=== PATIENT | female | born 1935 | race Caucasian/White ===

== ENCOUNTER 2017-03-08 09:38 | Inpatient (IN) | payer MEDICARE, OTHER ==
[2017-03-08] MEDS ORDERED: Sodium Chloride 0.9% 10 ML Syringe FLUSH PRN (14:11)
[2017-03-08] MEDS ORDERED: Ondansetron 4 MG Tab.DIS PO PRN ×2 (14:11→18:28)
[2017-03-08] MEDS: Sodium Chloride 0.9% 1,000 ML IV SCH ×2 (15:10→23:23)
[2017-03-08] MEDS: cefTRIAXone 1,000 MG in Sodium Chloride 0.9% 50 ML IV SCH (15:12)
[2017-03-08] MEDS: Enoxaparin 30 MG/0.3 ML Syringe SUBCUT SCH (16:53)
[2017-03-08] MEDS ORDERED: Albuterol 8 GM Inhaler INH PRN (18:28)
[2017-03-08] MEDS ORDERED: ALPRAZolam 0.5 MG Tab PO PRN (18:28)
[2017-03-08] MEDS ORDERED: Mometasone Furoate HFA 200 mcg/Puff 13 GM Inhaler INH SCH (21:00)
[2017-03-08] MEDS: ADVAIR INH SCH (21:21)
[2017-03-08] MEDS: Melatonin 3 MG Tab PO PRN (23:48)
[2017-03-09] MEDS: Sodium Chloride 0.9% 1,000 ML IV SCH ×3 (07:23→23:58)
[2017-03-09] MEDS ORDERED: ONDANSETRON 4MG TAB PO PRN ×2 (08:24→08:28)
[2017-03-09] MEDS: ADVAIR INH SCH ×2 (10:46→21:24)
[2017-03-09] MEDS: Escitalopram 20 MG Tab PO SCH (10:46)
[2017-03-09] MEDS: buPROPion 150 MG Tab.SR PO SCH (10:47)
[2017-03-09] MEDS: Tiotropium Inhaler 18 MCG Inhalation Powder Cap Kit of 5 INH SCH (10:47)
[2017-03-09] MEDS: Furosemide 20 MG Tab PO SCH (10:56)
--- NOTE | 2017-03-09 11:31 | PN ---
DATE SEEN: 03/09/2017 SUBJECTIVE: Deidra Macias is a 81-year-old female admitted with complicated urosepsis. Little better this morning. Little more confused by nursing observation. Otherwise, doing better. LABORATORY STUDIES: White count 14,800, repeat pending this morning. Sodium 133. Urine culture per [place] pending. OBJECTIVE: VITAL SIGNS: 37 degrees, 169/97, 134/84, 20, and 100%. NECK: Benign. Thyroid small. CHEST: Clear in all lung womack. HEART: Regular without ectopy. ABDOMEN: A bit distended. Good bowel sounds. Postvoid residual, 270. ASSESSMENT: 1. Urosepsis. 2. Vague abdominal pain. PLAN: Diagnostic ultrasound performed, we will follow up with laboratory studies, i.e. urine culture. The patient in agreement. Medications adjusted. /[id number] LIZ/SASKIA
--- NOTE | 2017-03-09 12:58 | HP ---
ADMISSION DATE: 03/08/2017 REASON FOR VISIT: Urosepsis, weakness, lethargy, and nausea. HISTORY OF PRESENT ILLNESS: Deidra Macias is a 81-year-old female from [place], [place], was admitted by Dr. Mcguire with progressive decline, refractory urinary tract infection, weakness, and nausea. Has been ill since first part of February with recurrent bladder infections. The last 24 hours, weak, fatigable, tired, had been given intravenous Rocephin and appropriate management, failed to respond to therapy. HOME MEDICATIONS: Include ASA 81 mg 1 p.o. daily, calcium carbonate 500 mg 1 p.o. daily nutrition, vitamin D3 1000 units one p.o. daily nutrition, melatonin 3 mg p.o. at bedtime for sleep enhancement, naproxen sodium 220 mg two p.o. b.i.d. joint pain, alprazolam 1/2 to 1 mg t.i.d. anxiety, albuterol 1 or 2 puffs q.4 hours p.r.n. breathing, escitalopram 20 mg 1 p.o. daily mood stabilizer, Advair 250/50 one puff b.i.d. for asthma/COPD, furosemide 20 mg 1 p.o. daily for edema, Zofran 4 mg 1 p.o. q.4 hours for nausea and vomiting, Spiriva 1 inhalation daily, and Wellbutrin 150 mg 1 p.o. daily mood stabilizer. ALLERGIES: No medication, environmental, or latex allergies. PAST MEDICAL HISTORY: Significant for no previous operative procedures, hospitalizations, unusual childhood diseases, major injuries, or fractures. Chronic illnesses include mood disorder, COPD, and reactive airway disease. SOCIAL HISTORY: . at 48 of leukemia. Five children and bunch of grandchildren. Long-term smoker, quit in 2014. High school; cocaine, worked at [employer] in the past. No alcohol consumption. No illicit drug use. REVIEW OF SYSTEMS: GENERAL: Weak, tired, fatigable. EYES: Sees well. EARS: Hears well, except in crowds. OROPHARYNX: Upper and lower plates. CARDIOVASCULAR: Denies chest pain, palpitations, or syncope. RESPIRATORY: COPD, on inhalation therapy. GI: Regular predictable stools, no blood in stools. : Voiding pattern reasonable. No blood in urine. SKIN: No open sores, lesions, eruptions, or moles. ENDOCRINE: No excessive thirst or urination. ALLERGY: No chronic cough, wheeze, or congestion. PSYCHIATRIC: Mood stable. OBJECTIVE: VITAL SIGNS: 36.8, pulse of 100, 138/80, 16 is the respiration, 96% room air. GENERAL: Elderly, cooperative, and conversant. Gives a good history. HEENT: Reveal funduscopic benign. Bright TMs. Clear nasal discharge. Mouth and oropharynx clear. Somewhat dry. NECK: Benign. Thyroid small. No adenopathy. CHEST: Clear in all lung womack. No adventitious sounds. HEART: Regular without ectopy or murmur. Breasts exam deferred. ABDOMEN: Benign. Well-healed surgical scars. Liver edge palpable. No splenic enlargement. PELVIC AND RECTAL: Excluded. EXTREMITIES: Well perfused. LABORATORY STUDIES: White count 14,800, hemoglobin 12.9. Sodium 133, potassium 3.9, GFR 48. Mildly elevated AST and ALT. Urine culture pending at [facility]. ASSESSMENT: Urosepsis with weakness and nausea. PLAN: Antibiotic therapy, timing appropriate. IV fluids, expectations for short hospital stay. /[id number] LIZ/SASKIA
[2017-03-09] MEDS: cefTRIAXone 1,000 MG in Sodium Chloride 0.9% 50 ML IV SCH (15:24)
[2017-03-09] MEDS: Enoxaparin 30 MG/0.3 ML Syringe SUBCUT SCH (15:37)
[2017-03-10] MEDS: Sodium Chloride 0.9% 1,000 ML IV SCH ×2 (08:11→16:41)
[2017-03-10] MEDS ORDERED: Sodium Phosphate,Monobasic/Sodium Phosphate,Dibasic Enema 133 ML Bottle RECTAL ONE (08:52)
[2017-03-10] MEDS ORDERED: Morphine 2 MG/ML Syringe IVPUSH PRN (08:53)
[2017-03-10] MEDS: Polyethylene Glycol 3350 Powder 17 GM Packet PO SCH (10:45)
--- NOTE | 2017-03-10 10:45 | PN ---
DATE SEEN: 03/10/2017 SUBJECTIVE: Deidra Macias is a 81-year-old female admitted with complicated urosepsis, weakness, fatigue, and nausea. She is still under some depression. She has noted some bloating and distention. She has not had a stool for 4 day's duration, though appetite has been reduced. Rectal exam revealed no stool within reach. Ultrasound planned of her belly today, timing inappropriate. OBJECTIVE: VITAL SIGNS: Fever has been absent at 37.1, 89, 137/72, 20 is the respiration, 96 on room air. CHEST: Clear all lung womack. HEART: Regular rate without ectopy or murmur. ABDOMEN: A bit distended. ASSESSMENT: 1. Urinary tract infection, urosepsis. 2. Unexplained abdominal pain. PLAN: Fleets Enema and MiraLAX will be provided. Ultrasound will be performed. Pain control in the mean time. /[id number] LIZ/SASKIA
[2017-03-10] MEDS: buPROPion 150 MG Tab.SR PO SCH (10:46)
[2017-03-10] MEDS: Escitalopram 20 MG Tab PO SCH (10:46)
[2017-03-10] MEDS: ADVAIR INH SCH (10:47)
[2017-03-10] MEDS: Tiotropium Inhaler 18 MCG Inhalation Powder Cap Kit of 5 INH SCH (10:51)
[2017-03-10] MEDS ORDERED: Ondansetron 4 MG Tab.DIS PO PRN (10:56)
--- NOTE | 2017-03-10 11:47 | PN ---
DATE SEEN: 03/10/2017 SUBJECTIVE: Deidra Macias had an ultrasound which revealed a lot of stool, but no other pathology. Upon getting her history and physical, she denied any surgery. Upon further review, she has had a previous abdominal hysterectomy, bilateral oophorectomy, and appendectomy. Surgical findings consistent with examination of a lower abdominal surgical scar. /[id number] LIZ/SASKIA
[2017-03-10] MEDS: cefTRIAXone 1,000 MG in Sodium Chloride 0.9% 50 ML IV SCH (14:41)
[2017-03-10] MEDS: Enoxaparin 30 MG/0.3 ML Syringe SUBCUT SCH (16:10)
--- NOTE | 2017-03-10 16:15 | US ---
INDICATION: Abdominal and pelvic pain. ULTRASOUND ABDOMEN COMPLETE: Multiple ultrasonic images of the abdomen were obtained, 03/10/2017, and revealed the IVC to be phasic. The common bile duct measured 1.02 cm, which is enlarged for this age group. A definite filling defect or calculus was not identified in the dilated common bile duct. No definite liver abnormality was identified. Although the gallbladder wall did not appear to be thickened, and there was a negative ultrasonic Dinh sign, there were noted two small calculi in the lower - neck area of the gallbladder. This finding should be correlated clinically. If clinical and lab findings suggest cholecystitis, additional examination may be warranted, such as nuclear medicine hepatobiliary imaging. There is noted what appears to be a tiny amount of pericholecystic fluid and some additional fluid inferior to the liver, which could be on the basis of cholecystitis, although other etiology certainly cannot be excluded. The gallbladder measured 5.6 x 3.1 x 3.7 cm. The right kidney measured 11.3 x 5.1 x 4 cm. The left kidney measured 9.7 x 4 x 3.9 cm. Both kidneys had a normal appearance. The spleen measured 10.9 x 3.4 x 7.4 cm. The aorta was not visualized due to intestinal gas. The pancreas was not adequately visualized due to intestinal gas. IMPRESSION: 1. Cholelithiasis with a negative ultrasonic Dinh sign, but with minimal pericholecystic fluid, as well as some minimal fluid at the lower edge of the liver, slightly beyond the gallbladder. The possibility of cholecystitis should be correlated clinically. Depending upon clinical necessity, additional examination could be obtained, such as hepatobiliary imaging with nuclear medicine. 2. Some limitation in visualization, especially the aorta and pancreas, which were not adequately seen. 3. Common bile duct is enlarged, measuring approximately 10.2 mm. MTDD
--- NOTE | 2017-03-10 16:17 | US ---
INDICATION: Pelvic pain. TRANSVAGINAL PELVIC ULTRASOUND, NON-OB: Multiple ultrasonic images were obtained of the pelvis, 03/10/2017, with transabdominal probe and revealed thickening of the urinary bladder wall to a mild degree, suggesting the possibility of cystitis. This should be correlated clinically. The uterus and ovaries are not visualized. No adnexal mass lesions or free fluid collections were identified. IMPRESSION: 1. Nonvisualization of the uterus and ovaries. No adnexal mass lesions or free fluid collections identified. 2. Slight thickening of the urinary bladder wall, raising question of cystitis - correlate clinically. 3. Need endovaginal probe ultrasound for further evaluation of the pelvis - better visualization of pelvic contents. INDICATION: Pelvic pain/need better visualization of pelvic contents than was possible with transabdominal probe. Utilizing endovaginal probe, multiple ultrasonic images were obtained and revealed absence of the uterus and ovaries, compatible with history of surgical removal (this was confirmed by [place] history). No adnexal mass lesions or free fluid collections were identified. IMPRESSION: Normal transvaginal pelvic ultrasound post hysterectomy/bilateral salpingo-oophorectomy. MTDD
[2017-03-10] MEDS: Formoterol/Mometasone 200-5 MCG 8.8 GM Inhaler IH SCH (20:42)
[2017-03-10] MEDS: Melatonin 3 MG Tab PO PRN (21:02)
[2017-03-11] MEDS: Sodium Chloride 0.9% 1,000 ML IV SCH ×2 (00:59→09:28)
[2017-03-11] MEDS: Formoterol/Mometasone 200-5 MCG 8.8 GM Inhaler IH SCH ×2 (09:21→20:34)
[2017-03-11] MEDS: Tiotropium Inhaler 18 MCG Inhalation Powder Cap Kit of 5 INH SCH (09:22)
[2017-03-11] MEDS: Furosemide 20 MG Tab PO SCH (09:22)
[2017-03-11] MEDS: buPROPion 150 MG Tab.SR PO SCH (09:22)
[2017-03-11] MEDS: Escitalopram 20 MG Tab PO SCH (09:22)
[2017-03-11] MEDS: Polyethylene Glycol 3350 Powder 17 GM Packet PO SCH (09:22)
--- NOTE | 2017-03-11 09:47 | PCM.PN ---
- General Info Date of Service: 03/11/17 Admission Dx/Problem (Free Text): The patient states she still feels very weak. Decreased appetite but is drinking fluids. She denies fevers, chills, chest pain, abdominal pain, dysuria , pyuria, hematuria. - Patient Data Vitals - most recent: Last Vital Signs Temp 98.8 F 03/11/17 00:00 Pulse 88 03/11/17 00:00 Resp 18 03/11/17 00:00 BP 133/56 L 03/11/17 00:00 Pulse Ox 97 03/11/17 00:00 Weight - most recent: 107 lb I&O - last 24 hours: Intake & Output 03/10/17 03/11/17 03/11/17 22:59 06:59 14:59 Intake Total 1368 1135 Output Total 100 300 Balance 1268 835 [place] Results last 24 hrs: Microbiology 03/09/17 21:40 Urine Culture - Preliminary Urine, Clean Catch NO GROWTH AFTER 1 DAY 03/08/17 14:40 Aerobic Blood Culture - Preliminary Blood - Venous - Lab Draw NO GROWTH AFTER 2 DAYS Anaerobic Blood Culture - Preliminary NO GROWTH AFTER 2 DAYS 03/08/17 14:35 Aerobic Blood Culture - Preliminary Blood - Venous NO GROWTH AFTER 2 DAYS Anaerobic Blood Culture - Preliminary NO GROWTH AFTER 2 DAYS Med Orders - Current: Current Medications Albuterol (Ventolin Hfa) 0 gm INH Q4H PRN PRN Reason: Shortness of Breath Alprazolam (Xanax) 0.5 mg PO TID PRN PRN Reason: Anxiety Last Admin: 03/10/17 21:02 Dose: 0.5 mg Bupropion HCl (Wellbutrin Sr) 150 mg PO DAILY [facility] Last Admin: 03/11/17 09:22 Dose: 150 mg Enoxaparin Sodium (Lovenox) 30 mg SUBCUT Q24H [facility] Last Admin: 03/10/17 16:10 Dose: 30 mg Escitalopram Oxalate (Lexapro) 20 mg PO DAILY [facility] Last Admin: 03/11/17 09:22 Dose: 20 mg Furosemide (Lasix) 20 mg PO DAILY [facility] Last Admin: 03/11/17 09:22 Dose: 20 mg Ceftriaxone Sodium 1,000 mg/ (Sodium Chloride) 50 mls @ 100 mls/hr IV Q24H [facility] Last Admin: 03/10/17 14:41 Dose: 100 mls/hr Melatonin (Melatonin) 3 mg PO BEDTIME PRN PRN Reason: Insomnia Last Admin: 03/10/17 21:02 Dose: 3 mg Mometasone Furoate/Formoterol Fumar (Dulera 200-5 Mcg) 2 puff IH BID [facility] Last Admin: 03/11/17 09:21 Dose: 2 puff Polyethylene Glycol (Miralax) 17 gm PO DAILY [facility] Last Admin: 03/11/17 09:22 Dose: 17 gm Tiotropium [place] (Spiriva Handihaler) 18 mcg INH DAILY [facility] Last Admin: 03/11/17 09:22 Dose: 1 inhaler Discontinued Medications Sodium Chloride (Normal Saline) 1,000 mls @ 125 mls/hr IV ASDIRECTED [facility] Last Admin: 03/11/17 09:28 Dose: 125 mls/hr Mometasone Furoate (Asmanex Hfa 200mcg) 0 gm INH BID [facility] Last Admin: 03/08/17 23:57 Dose: Not Given Morphine Sulfate (Morphine) 1 mg IVPUSH Q1H PRN PRN Reason: Abdominal Pain Last Admin: 03/10/17 16:01 Dose: 1 mg Ondansetron 4mg Tab 4 each PO Q6H PRN PRN Reason: NAUSEA/VOMITING Ondansetron 4mg Tab 0 each PO Q6H PRN PRN Reason: NAUSEA/VOMITING Ondansetron HCl (Zofran Odt) 4 mg PO Q4H PRN PRN Reason: nausea, able to take PO Last Admin: 03/08/17 21:20 Dose: 4 mg Ondansetron HCl (Zofran Odt) 4 mg PO Q6H PRN PRN Reason: Nausea/Vomiting Ondansetron HCl (Zofran Odt) 4 mg PO Q6H PRN PRN Reason: NAUSEA/VOMITING Patient's Own Medication 1 Each Advair 250/50 Mcg 0 each INH BID [facility] Last Admin: 03/10/17 10:47 Dose: 1 each Sodium Biphosphate/Sodium Phosphate (Fleet Enema) 133 ml RECTAL ONETIME ONE Stop: 03/10/17 08:53 Last Admin: 03/10/17 10:53 Dose: 1 enema Sodium Chloride (Saline Flush) 10 ml FLUSH ASDIRECTED PRN PRN Reason: Keep Vein Open Last Admin: 03/08/17 15:14 Dose: 10 ml - Exam General: alert, oriented, cooperative Neck: supple Lungs: Clear to auscultation, Normal respiratory effort Cardiovascular: Regular Rate, Regular Rhythm, No Murmurs Abdomen: bowel sounds present, soft, no tenderness, no distension Extremities: no edema - Problem List & Annotations (1) Dehydration SNOMED Code(s): 67553443 Code(s): E86.0 - DEHYDRATION Status: Acute Current Visit: Yes (2) UTI (urinary tract infection) SNOMED Code(s): 05953174 Code(s): N39.0 - URINARY TRACT INFECTION, SITE NOT SPECIFIED Status: Acute Current Visit: Yes (3) Weakness SNOMED Code(s): 19895409 Code(s): R53.1 - WEAKNESS Status: Acute Current Visit: Yes (4) Cholelithiasis SNOMED Code(s): 772920199 Code(s): K80.20 - CALCULUS OF GALLBLADDER W/O CHOLECYSTITIS W/O OBSTRUCTION Status: Acute Current Visit: Yes - Problem List Review Problem List Initiated/Reviewed/Updated: Yes - My Orders Last 24 Hours: My Active Orders 03/11/17 09:44 Convert IV to Saline Lock [OM.PC] Routine - Plan Plan:: 1. DC IV fluids and saline lock IV. 2. Increase activity with PT/OT. 3. Change vitals q. shift. Stop I.'s and O.'s and daily weights. 4. Encourage the patient to be sitting up and moving.
[2017-03-11] MEDS ORDERED: Magnesium Citrate Solution 296 ML Bottle PO ONE (14:30)
[2017-03-11] MEDS: Sodium Chloride 0.9% 10 ML Syringe FLUSH PRN (14:40)
[2017-03-11] MEDS: Sodium Chloride 0.9% 250 ML IV SCH (14:41)
[2017-03-11] MEDS: cefTRIAXone 1,000 MG in Sodium Chloride 0.9% 50 ML IV SCH (14:41)
[2017-03-11] MEDS: Enoxaparin 30 MG/0.3 ML Syringe SUBCUT SCH (16:38)
[2017-03-12] MEDS ORDERED: Bisacodyl 10 MG Supp RECTAL PRN (07:53)
[2017-03-12] MEDS: Formoterol/Mometasone 200-5 MCG 8.8 GM Inhaler IH SCH (08:20)
[2017-03-12] MEDS: Tiotropium Inhaler 18 MCG Inhalation Powder Cap Kit of 5 INH SCH (08:21)
[2017-03-12] MEDS: Polyethylene Glycol 3350 Powder 17 GM Packet PO SCH (08:21)
[2017-03-12] MEDS: Escitalopram 20 MG Tab PO SCH (08:21)
[2017-03-12] MEDS: Furosemide 20 MG Tab PO SCH (08:21)
[2017-03-12] MEDS: buPROPion 150 MG Tab.SR PO SCH (08:23)
[2017-03-12] MEDS ORDERED: Magnesium Hydroxide 400 MG/5 ML Susp 30 ML Cup PO PRN (09:03)
--- NOTE | 2017-03-12 09:07 | PCM.PN ---
- General Info Date of Service: 03/12/17 Admission Dx/Problem (Free Text): Patient states she's not had a BM since she's been here. Other than that she's feeling good. She has more strength. She is a little abdominal pain but very mild in the lower abdomen bilateral. She denies dysuria, pyuria, hematuria, fevers, chills, back pain. PT reports that she is very strong and walking well. - Patient Data Vitals - most recent: Last Vital Signs Temp 97.6 F 03/12/17 04:00 Pulse 84 03/12/17 04:00 Resp 20 03/12/17 04:00 BP 131/69 03/12/17 04:00 Pulse Ox 99 03/12/17 04:00 Weight - most recent: 107 lb [place] Results last 24 hrs: Microbiology 03/09/17 21:40 Urine Culture - Final Urine, Clean Catch NO GROWTH AFTER 2 DAYS 03/08/17 14:40 Aerobic Blood Culture - Preliminary Blood - Venous - Lab Draw NO GROWTH AFTER 3 DAYS Anaerobic Blood Culture - Preliminary NO GROWTH AFTER 3 DAYS 03/08/17 14:35 Aerobic Blood Culture - Preliminary Blood - Venous NO GROWTH AFTER 3 DAYS Anaerobic Blood Culture - Preliminary NO GROWTH AFTER 3 DAYS Med Orders - Current: Current Medications Albuterol (Ventolin Hfa) 0 gm INH Q4H PRN PRN Reason: Shortness of Breath Alprazolam (Xanax) 0.5 mg PO TID PRN PRN Reason: Anxiety Last Admin: 03/10/17 21:02 Dose: 0.5 mg Bisacodyl (Dulcolax) 10 mg RECTAL BID PRN PRN Reason: Constipation Bupropion HCl (Wellbutrin Sr) 150 mg PO DAILY [facility] Last Admin: 03/12/17 08:23 Dose: 150 mg Enoxaparin Sodium (Lovenox) 30 mg SUBCUT Q24H [facility] Last Admin: 03/11/17 16:38 Dose: 30 mg Escitalopram Oxalate (Lexapro) 20 mg PO DAILY [facility] Last Admin: 03/12/17 08:21 Dose: 20 mg Furosemide (Lasix) 20 mg PO DAILY [facility] Last Admin: 03/12/17 08:21 Dose: 20 mg Ceftriaxone Sodium 1,000 mg/ (Sodium Chloride) 50 mls @ 100 mls/hr IV Q24H [facility] Last Admin: 03/11/17 14:41 Dose: 100 mls/hr Sodium Chloride (Normal Saline) 250 mls @ 100 mls/hr IV ASDIRECTED [facility] Last Admin: 03/11/17 14:41 Dose: 100 mls/hr Magnesium Hydroxide (Milk Of Magnesia) 30 ml PO Q4H PRN PRN Reason: Constipation Melatonin (Melatonin) 3 mg PO BEDTIME PRN PRN Reason: Insomnia Last Admin: 03/10/17 21:02 Dose: 3 mg Mometasone Furoate/Formoterol Fumar (Dulera 200-5 Mcg) 2 puff IH BID [facility] Last Admin: 03/12/17 08:20 Dose: 2 puff Polyethylene Glycol (Miralax) 17 gm PO DAILY [facility] Last Admin: 03/12/17 08:21 Dose: 17 gm Sodium Chloride (Saline Flush) 10 ml FLUSH ASDIRECTED PRN PRN Reason: flush med Last Admin: 03/11/17 14:40 Dose: 10 ml Tiotropium [place] (Spiriva Handihaler) 18 mcg INH DAILY [facility] Last Admin: 03/12/17 08:21 Dose: 1 inhaler Discontinued Medications Sodium Chloride (Normal Saline) 1,000 mls @ 125 mls/hr IV ASDIRECTED [facility] Last Admin: 03/11/17 09:28 Dose: 125 mls/hr Magnesium Citrate (Citrate Of Magnesia) 296 ml PO ONETIME ONE Stop: 03/11/17 14:31 Last Admin: 03/11/17 14:36 Dose: 296 ml Mometasone Furoate (Asmanex Hfa 200mcg) 0 gm INH BID [facility] Last Admin: 03/08/17 23:57 Dose: Not Given Morphine Sulfate (Morphine) 1 mg IVPUSH Q1H PRN PRN Reason: Abdominal Pain Last Admin: 03/10/17 16:01 Dose: 1 mg Ondansetron 4mg Tab 4 each PO Q6H PRN PRN Reason: NAUSEA/VOMITING Ondansetron 4mg Tab 0 each PO Q6H PRN PRN Reason: NAUSEA/VOMITING Ondansetron HCl (Zofran Odt) 4 mg PO Q4H PRN PRN Reason: nausea, able to take PO Last Admin: 03/08/17 21:20 Dose: 4 mg Ondansetron HCl (Zofran Odt) 4 mg PO Q6H PRN PRN Reason: Nausea/Vomiting Ondansetron HCl (Zofran Odt) 4 mg PO Q6H PRN PRN Reason: NAUSEA/VOMITING Patient's Own Medication 1 Each Advair 250/50 Mcg 0 each INH BID [facility] Last Admin: 03/10/17 10:47 Dose: 1 each Sodium Biphosphate/Sodium Phosphate (Fleet Enema) 133 ml RECTAL ONETIME ONE Stop: 03/10/17 08:53 Last Admin: 03/10/17 10:53 Dose: 1 enema Sodium Chloride (Saline Flush) 10 ml FLUSH ASDIRECTED PRN PRN Reason: Keep Vein Open Last Admin: 03/08/17 15:14 Dose: 10 ml - Exam General: alert, oriented Lungs: Clear to auscultation, Normal respiratory effort, Decreased breath sounds. No: Crackles, Rales, Rhonchi, Rub Cardiovascular: Regular Rate, Regular Rhythm. No: No Murmurs Abdomen: bowel sounds present, soft, no tenderness, no distension. No: rebound , guarding, tenderness, distension Extremities: no edema - Problem List & Annotations (1) Dehydration SNOMED Code(s): 02511964 Code(s): E86.0 - DEHYDRATION Status: Acute Current Visit: Yes (2) UTI (urinary tract infection) SNOMED Code(s): 87437161 Code(s): N39.0 - URINARY TRACT INFECTION, SITE NOT SPECIFIED Status: Acute Current Visit: Yes (3) Weakness SNOMED Code(s): 80992272 Code(s): R53.1 - WEAKNESS Status: Acute Current Visit: Yes (4) Cholelithiasis SNOMED Code(s): 260349962 Code(s): K80.20 - CALCULUS OF GALLBLADDER W/O CHOLECYSTITIS W/O OBSTRUCTION Status: Acute Current Visit: Yes (5) Constipation SNOMED Code(s): 91931870 Code(s): K59.00 - CONSTIPATION, UNSPECIFIED Status: Acute Current Visit: Yes - Problem List Review Problem List Initiated/Reviewed/Updated: Yes - My Orders Last 24 Hours: My Active Orders 03/11/17 09:44 Convert IV to Saline Lock [OM.PC] Routine 03/11/17 10:36 Sodium Chloride 0.9% [Saline Flush] 10 ml FLUSH ASDIRECTED PRN 03/11/17 14:40 Sodium Chloride 0.9% [Normal Saline] 250 ml IV ASDIRECTED 03/12/17 07:53 Bisacodyl [Dulcolax] 10 mg RECTAL BID PRN 03/12/17 09:03 Magnesium Hydroxide [Milk of Magnesia] 30 ml PO Q4H PRN - Assessment Assessment:: 1. Try some milk of magnesia and ducolax suppositories. 2. DC to home on oral antibiotics, home health and physical therapy. - Plan Plan:: 1. DC IV fluids and saline lock IV. 2. Increase activity with PT/OT. 3. Change vitals q. shift. Stop I.'s and O.'s and daily weights. 4. Encourage the patient to be sitting up and moving.
--- NOTE | 2017-03-12 09:16 | PCM.DCSUM1 ---
Discharge Summary - Hospital Course Free Text/Narrative:: Hospital course-patient was admitted and placed on IV fluids with a PT/OT consultation. She was also placed on Rocephin 1 g IV. She had a positive urine in the clinic. He did not grow out anything except for microflora. Patient had abdominal pain while she was here and according to Dr. Betts that showed diffuse stool. There was some cholelithiasis. This was reported to the patient. Patient had constipation while she was here. Patient improved and we were able to get her off the IV fluids she was able the drink and her strength came back. I will discharge her home on home health with PT, Cipro 500 mg twice a day for 5 days. Brief History: This is a 81-year-old female patient that had a week and a half and not able to eat or drink, nausea, vomiting. She is found to have a UTI. She was treated outpatient with Zofran and Rocephin IM. She got worse and then was admitted for UTI, dehydration, profound weakness. Her friend with her stated she couldn't even stand up. - Discharge Data Discharge Date: 03/12/17 Discharge Disposition: Home, W Home Health Agency 06 Condition: Good - Discharge Diagnosis/Problem(s) (1) Dehydration SNOMED Code(s): 43584416 ICD Code: E86.0 - DEHYDRATION Status: Acute Current Visit: Yes (2) UTI (urinary tract infection) SNOMED Code(s): 83374226 ICD Code: N39.0 - URINARY TRACT INFECTION, SITE NOT SPECIFIED Status: Acute Current Visit: Yes (3) Weakness SNOMED Code(s): 38610840 ICD Code: R53.1 - WEAKNESS Status: Acute Current Visit: Yes (4) Cholelithiasis SNOMED Code(s): 180657213 ICD Code: K80.20 - CALCULUS OF GALLBLADDER W/O CHOLECYSTITIS W/O OBSTRUCTION Status: Acute Current Visit: Yes (5) Constipation SNOMED Code(s): 54026432 ICD Code: K59.00 - CONSTIPATION, UNSPECIFIED Status: Acute Current Visit : Yes - Patient Summary/Data Consults: Consultations 03/08/17 14:11 OT Evaluation and Treatment [CONS] Routine Please Evaluate and Treat. OT Reason for Consult: ADL's This query below is only for informational purposes and is not editable. PT Evaluation and Treatment [CONS] Routine Please Evaluate and Treat. PT Reason for Consult: Ambulation This query below is only for informational purposes and is not editable. - Patient Instructions Diet: Regular Diet as Tolerated Activity: As Tolerated Driving: May Drive Today Showering/Bathing: May Shower Notify Provider of: Fever, Increased Pain, Nausea and/or Vomiting Other/Special Instructions: 1. Recheck with Dr. Mcguire in 7-10 days. 2. Home health with physical therapy. Regarding medical management, med teaching, home safety evaluation, strengthening - Discharge Plan Prescriptions/Med Rec: Ciprofloxacin HCl [Cipro] 500 mg PO BID #10 tablet Home Medications: Home Meds ALPRAZolam [Xanax] 0.5 - 1 mg PO TID PRN 09/19/14 [History] Albuterol [Ventolin HFA] 2 puff INH Q4H PRN 09/19/14 [History] Aspirin [Ecotrin] 81 mg PO DAILY 09/19/14 [History] EPINEPHrine [Epipen] 0.3 mg IM ASDIRECTED PRN 09/19/14 [History] Escitalopram [Lexapro] 20 mg PO DAILY 09/19/14 [History] Tiotropium [Spiriva HandiHaler] 18 mcg INH DAILY 09/19/14 [History] Fluticasone/Salmeterol [Advair 250-50 Diskus] 1 inh PO BID 10/13/16 [History] Furosemide [Lasix] 20 mg PO DAILY 10/13/16 [History] Calcium Carbonate [Tums] 500 mg PO ASDIRECTED PRN 03/08/17 [History] Cholecalciferol (Vitamin D3) [Vitamin D3] 1,000 units PO DAILY 03/08/17 [History ] Melatonin 3 mg PO BEDTIME 03/08/17 [History] Naproxen Sodium [Aleve] 220 mg PO ASDIRECTED PRN 03/08/17 [History] Ondansetron [Zofran] 4 mg PO Q6H PRN 03/08/17 [History] buPROPion [Wellbutrin SR] 150 mg PO DAILY 03/08/17 [History] Ciprofloxacin HCl [Cipro] 500 mg PO BID #10 tablet 03/12/17 [Rx] Patient Handouts: Urinary Tract Infection, Adult, Fall Prevention in Hospitals , Adult, Venous Thromboembolism Prevention - Discharge Summary/Plan Comment DC Time >30 min.: No - Patient Data Vitals - Most Recent: Last Vital Signs Temp 97.6 F 03/12/17 04:00 Pulse 84 03/12/17 04:00 Resp 20 03/12/17 04:00 BP 131/69 03/12/17 04:00 Pulse Ox 99 03/12/17 04:00 Weight - Most Recent: 107 lb TONNY Results - Last 24 hrs: Microbiology 03/09/17 21:40 Urine Culture - Final Urine, Clean Catch NO GROWTH AFTER 2 DAYS 03/08/17 14:40 Aerobic Blood Culture - Preliminary Blood - Venous - Lab Draw NO GROWTH AFTER 3 DAYS Anaerobic Blood Culture - Preliminary NO GROWTH AFTER 3 DAYS 03/08/17 14:35 Aerobic Blood Culture - Preliminary Blood - Venous NO GROWTH AFTER 3 DAYS Anaerobic Blood Culture - Preliminary NO GROWTH AFTER 3 DAYS Med Orders - Current: Current Medications Albuterol (Ventolin Hfa) 0 gm INH Q4H PRN PRN Reason: Shortness of Breath Alprazolam (Xanax) 0.5 mg PO TID PRN PRN Reason: Anxiety Last Admin: 03/10/17 21:02 Dose: 0.5 mg Bisacodyl (Dulcolax) 10 mg RECTAL BID PRN PRN Reason: Constipation Last Admin: 03/12/17 09:07 Dose: 10 mg Bupropion HCl (Wellbutrin Sr) 150 mg PO DAILY [facility] Last Admin: 03/12/17 08:23 Dose: 150 mg Enoxaparin Sodium (Lovenox) 30 mg SUBCUT Q24H [facility] Last Admin: 03/11/17 16:38 Dose: 30 mg Escitalopram Oxalate (Lexapro) 20 mg PO DAILY [facility] Last Admin: 03/12/17 08:21 Dose: 20 mg Furosemide (Lasix) 20 mg PO DAILY [facility] Last Admin: 03/12/17 08:21 Dose: 20 mg Ceftriaxone Sodium 1,000 mg/ (Sodium Chloride) 50 mls @ 100 mls/hr IV Q24H [facility] Last Admin: 03/11/17 14:41 Dose: 100 mls/hr Sodium Chloride (Normal Saline) 250 mls @ 100 mls/hr IV ASDIRECTED [facility] Last Admin: 03/11/17 14:41 Dose: 100 mls/hr Magnesium Hydroxide (Milk Of Magnesia) 30 ml PO Q4H PRN PRN Reason: Constipation Melatonin (Melatonin) 3 mg PO BEDTIME PRN PRN Reason: Insomnia Last Admin: 03/10/17 21:02 Dose: 3 mg Mometasone Furoate/Formoterol Fumar (Dulera 200-5 Mcg) 2 puff IH BID [facility] Last Admin: 03/12/17 08:20 Dose: 2 puff Polyethylene Glycol (Miralax) 17 gm PO DAILY [facility] Last Admin: 03/12/17 08:21 Dose: 17 gm Sodium Chloride (Saline Flush) 10 ml FLUSH ASDIRECTED PRN PRN Reason: flush med Last Admin: 03/11/17 14:40 Dose: 10 ml Tiotropium [place] (Spiriva Handihaler) 18 mcg INH DAILY [facility] Last Admin: 03/12/17 08:21 Dose: 1 inhaler Discontinued Medications Sodium Chloride (Normal Saline) 1,000 mls @ 125 mls/hr IV ASDIRECTED [facility] Last Admin: 03/11/17 09:28 Dose: 125 mls/hr Magnesium Citrate (Citrate Of Magnesia) 296 ml PO ONETIME ONE Stop: 03/11/17 14:31 Last Admin: 03/11/17 14:36 Dose: 296 ml Mometasone Furoate (Asmanex Hfa 200mcg) 0 gm INH BID [facility] Last Admin: 03/08/17 23:57 Dose: Not Given Morphine Sulfate (Morphine) 1 mg IVPUSH Q1H PRN PRN Reason: Abdominal Pain Last Admin: 03/10/17 16:01 Dose: 1 mg Ondansetron 4mg Tab 4 each PO Q6H PRN PRN Reason: NAUSEA/VOMITING Ondansetron 4mg Tab 0 each PO Q6H PRN PRN Reason: NAUSEA/VOMITING Ondansetron HCl (Zofran Odt) 4 mg PO Q4H PRN PRN Reason: nausea, able to take PO Last Admin: 03/08/17 21:20 Dose: 4 mg Ondansetron HCl (Zofran Odt) 4 mg PO Q6H PRN PRN Reason: Nausea/Vomiting Ondansetron HCl (Zofran Odt) 4 mg PO Q6H PRN PRN Reason: NAUSEA/VOMITING Patient's Own Medication 1 Each Advair 250/50 Mcg 0 each INH BID [facility] Last Admin: 03/10/17 10:47 Dose: 1 each Sodium Biphosphate/Sodium Phosphate (Fleet Enema) 133 ml RECTAL ONETIME ONE Stop: 03/10/17 08:53 Last Admin: 03/10/17 10:53 Dose: 1 enema Sodium Chloride (Saline Flush) 10 ml FLUSH ASDIRECTED PRN PRN Reason: Keep Vein Open Last Admin: 03/08/17 15:14 Dose: 10 ml *Q Meaningful Use (DIS) - VTE *Q VTE Criteria *Q: - Stroke *Q Stroke Criteria *Q: - AMI *Q AMI Criteria *Q:
[2017-03-12] MEDS ORDERED: Sodium Phosphate,Monobasic/Sodium Phosphate,Dibasic Enema 133 ML Bottle RECTAL ONE (09:18)
[2017-03-12 10:23] VITALS: BP 123/66
[2017-03-12] MEDS: cefTRIAXone 1,000 MG in Sodium Chloride 0.9% 50 ML IV SCH (13:45)
[2017-03-12] MEDS: Sodium Chloride 0.9% 10 ML Syringe FLUSH PRN (13:45)
[2017-03-12] MEDS: Sodium Chloride 0.9% 250 ML IV SCH (13:45)
== END 2017-03-12 14:37 | disposition home health service (06) | DRG 690 ==
LOC: FB.MS 09:38 → OBSVTOIN 03-10 09:38
PROVIDERS: ADMIT Family Medicine; ATTEND Family Medicine
DX: N39.0 Urinary tract infection, site not specified (principal); I10 Essential (primary) hypertension; R53.83 Other fatigue; R53.1 Weakness; R11.0 Nausea; E86.0 Dehydration; K80.20 Calculus of gallbladder without cholecystitis without obstruction; J44.9 Chronic obstructive pulmonary disease, unspecified; Z87.891 Personal history of nicotine dependence; F39 Unspecified mood [affective] disorder; K59.00 Constipation, unspecified; Z79.82 Long term (current) use of aspirin; Z91.030 Bee allergy status
CPT/HCPCS: 36415; 80053; 81001; 84484; 85025; 87040 ×2; 93005; 97165; A9270 ×4; J0696 ×2; J1650 ×2; J7040 ×6; J7050 ×3; 76700; 76830; 76857; 87086; 96361; 96372; 96374; 96376; 97161-GP; 97530-GO-KX; 97535-GO; 99219; 99224; G0378; J2270

== ENCOUNTER 2017-03-20 15:02 | Emergency (ER) | payer MEDICARE, OTHER, MEDICAID ==
--- NOTE | 2017-03-20 15:48 | EDM.PDOC ---
ED HPI GENERAL MEDICAL PROBLEM - General Chief Complaint: General Stated Complaint: dizziness Time Seen by Provider: 03/20/17 15:30 Source of Information: Reports: Patient, Family, Old Records History Limitations: Reports: No Limitations - History of Present Illness INITIAL COMMENTS - FREE TEXT/NARRATIVE: Deidra returns to [facility] ED with sxs of dizziness today. There is no hx of chest pain, SOB, headache or change in balance. She has not fallen, reportedly able to ambulate in house. Her son and daughter in law reported 'hallucinations ' today, reportedly hearing strangers, relatives, and other things she refused to elaborate. It is uncertain if there were any visual hallucinations. She was seen last week for an assessment, lab work reviewed, including a brief hospitalization for dehydration and suspected UTI. She is not a reliable historian. - Related Data Allergies Allergy/AdvReac Type Severity Reaction Status Date / Time venom-honey bee Allergy Swelling Verified 03/08/17 14:34 [bee venom (honey bee)] Home Meds: Home Meds ALPRAZolam [Xanax] 0.5 - 1 mg PO TID PRN 09/19/14 [History] Albuterol [Ventolin HFA] 2 puff INH Q4H PRN 09/19/14 [History] Aspirin [Ecotrin] 81 mg PO DAILY 09/19/14 [History] EPINEPHrine [Epipen] 0.3 mg IM ASDIRECTED PRN 09/19/14 [History] Escitalopram [Lexapro] 20 mg PO DAILY 09/19/14 [History] Tiotropium [Spiriva HandiHaler] 18 mcg INH DAILY 09/19/14 [History] Fluticasone/Salmeterol [Advair 250-50 Diskus] 1 inh PO BID 10/13/16 [History] Furosemide [Lasix] 20 mg PO DAILY 10/13/16 [History] Calcium Carbonate [Tums] 500 mg PO ASDIRECTED PRN 03/08/17 [History] Cholecalciferol (Vitamin D3) [Vitamin D3] 1,000 units PO DAILY 03/08/17 [History ] Melatonin 3 mg PO BEDTIME 03/08/17 [History] Naproxen Sodium [Aleve] 220 mg PO ASDIRECTED PRN 03/08/17 [History] Ondansetron [Zofran] 4 mg PO Q6H PRN 03/08/17 [History] buPROPion [Wellbutrin SR] 150 mg PO DAILY 03/08/17 [History] Ciprofloxacin HCl [Cipro] 500 mg PO BID #10 tablet 03/12/17 [Rx] Past Medical History - Past Health History Medical/Surgical History: Denies Medical/Surgical History HEENT History: Reports: Impaired Vision 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: Reports: COPD 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: Musculoskeletal History: Reports: Back Pain, Chronic Psychiatric History: Reports: Depression, Panic Attack - Past Surgical History HEENT Surgical History: Reports: Cataract Surgery, Tonsillectomy Cardiovascular Surgical History: Reports: Carotid Endarterectomy Other Cardiovascular Surgeries/Procedures: VARICOSE VEIN STRIPPING, left endarterectomy, takes diuretics for swelling of legs GI Surgical History: Reports: Appendectomy Social & Family History - Family History Family Medical History: Noncontributory - Tobacco Use Smoking Status *Q: Former Smoker Years of Tobacco use: 25 Used Tobacco, but Quit: Yes Month Tobacco Last Used: NA Second Hand Smoke Exposure: No - Caffeine Use Caffeine Use: Reports: Coffee Caffeine Use Comment: 2 cups in the morning - Alcohol Use Days Per Week of Alcohol Use: 0 - Recreational Drug Use Recreational Drug Use: No - Living Situation & Occupation Living situation: Reports: Alone, with Family ED ROS GENERAL - Review of Systems Review Of Systems: See Below Constitutional: Reports: No Symptoms HEENT: Reports: No Symptoms Respiratory: Reports: No Symptoms Cardiovascular: Reports: No Symptoms Endocrine: Reports: No Symptoms GI/Abdominal: Reports: No Symptoms : Reports: No Symptoms Musculoskeletal: Reports: No Symptoms Skin: Reports: Other (swelling of lower legs (chronic)) Neurological: Reports: Dizziness Psychiatric: Reports: Hallucinations Hematologic/Lymphatic: Reports: No Symptoms Immunologic: Reports: No Symptoms ED EXAM, GENERAL - Physical Exam Exam: See Below Exam Limited By: No Limitations General Appearance: Alert, WD/WN, No Apparent Distress, Other (unreliable historian) Eye Exam: Bilateral Eye: Normal Inspection, PERRL Ears: Normal External Exam, Normal TMs Nose: Normal Inspection Throat/Mouth: Normal Oropharynx Neck: Normal Inspection, Supple, Non-Tender, Full Range of Motion Respiratory/Chest: Decreased Breath Sounds, Crackles (L anterior chest) Cardiovascular: Regular Rate, Rhythm, No Murmur GI/Abdominal: Normal Bowel Sounds, Soft, Non-Tender, No Organomegaly, No Distention, No Mass (Female) Exam: Deferred Rectal (Female) Exam: Deferred Back Exam: Normal Inspection Extremities: Pedal Edema Neurological: Alert, CN II-XII Intact, No Motor/Sensory Deficits Psychiatric: Other (mood neutral, affect restricted, reported auditory hallucinations) Skin Exam: Warm, Dry, Intact Lymphatic: No Adenopathy Course - Vital Signs Text/Narrative:: I check orthostatic BPs in the ED, all normal for age. A dipstik UA was also satisfactory. Deidra is featuring signs of a psychiatric disorder, and needs further evaluation with her PCP. She should not be living alone, conditions discussed with son and daughter in law in attendance. - Orders/Labs/Meds Labs: Laboratory Tests 03/20/17 Range/Units 15:00 Urine Color Yellow (YELLOW) Urine Appearance Slightly cloudy (CLEAR) Urine pH 6.0 (5.0-6.5) Ur Specific [place] 1.020 (1.010-1.025) Urine Protein Negative (NEGATIVE) mg/dL Urine Glucose (UA) Normal (NEGATIVE) mg/dL Urine Ketones 50 H (NEGATIVE) mg/dL Urine Occult Blood Negative (NEGATIVE) Urine Nitrite Negative (NEGATIVE) Urine Bilirubin Small H (NEGATIVE) Urine Urobilinogen Normal (NEGATIVE) mg/dL Ur Leukocyte Esterase Large H (NEGATIVE) Departure - Departure Time of Disposition: 16:05 Disposition: Home, Self-Care 01 Condition: fair Clinical Impression: Dizziness, Hallucinations, unspecified - Discharge Information Forms: ED Department Discharge - Problem List & Annotations (1) Dizziness SNOMED Code(s): 328051129 Code(s): R42 - DIZZINESS AND GIDDINESS Status: Acute Priority: High Current Visit: Yes Annotation/Comment:: Exam negative for neurologic etiology or persistence. Initial repeat EKG and trops negative. Chemistries acceptible. Chronic anemia without active bleeding now on ASA and Plavix. Fall percautions in place. No deterioration neurologic status over night. (2) Hallucinations, unspecified SNOMED Code(s): 5755117 Code(s): R44.3 - HALLUCINATIONS, UNSPECIFIED Status: Acute Current Visit : Yes Annotation/Comment:: Needs further assessment with PCP. Family understands and will facilitate follow up. - Problem List Review Problem List Initiated/Reviewed/Updated: Yes - Assessment/Plan Plan: Follow up with PCP.
[2017-03-20 16:29] VITALS: BP 120/68
== END 2017-03-20 16:10 | disposition home or self-care (01) ==
LOC: FB.ED 15:02
DX: R42 Dizziness and giddiness (principal); R44.3 Hallucinations, unspecified; H54.7 Unspecified visual loss; J44.9 Chronic obstructive pulmonary disease, unspecified; Z98.890 Other specified postprocedural states; Z98.49 Cataract extraction status, unspecified eye; Z90.49 Acquired absence of other specified parts of digestive tract; Z87.891 Personal history of nicotine dependence; Z91.030 Bee allergy status; Z79.899 Other long term (current) drug therapy; Z79.82 Long term (current) use of aspirin
CPT/HCPCS: 51701; 81003; 99282; 99285

== ENCOUNTER 2017-04-01 11:20 | Inpatient (IN) | payer MEDICARE, OTHER, MEDICAID ==
--- NOTE | 2017-04-01 11:50 | EDM.PDOC ---
[id number] DETERIORATING RAPIDLY Time Seen by Provider: 04/01/17 11:25 Source of Information: Reports: Patient, Family History Limitations: Reports: No Limitations - History of Present Illness INITIAL COMMENTS - FREE TEXT/NARRATIVE: 81 yo F brought by her Family for evaluation of clinical deterioration, Failure to Thrive and about 10 pound unintentional weight Loss especially over the past 3 weeks. Patient has multiple medical problems as listed and currently lives alone and has Home health as well as some friends and Family members check on her from time to time. Her Family last saw her about 3 weeks ago but notes that she seem very weak and deconditioned and no longer able to care for her self at home. Family notes that she has been looking weak with decreased appetite. No chest pain, SOB but reports occasional abdominal pain but no pain at this moment. Denied any urinary symptoms. Was seen by PCP 2 days and Family said she was evaluated for COPD related issues. Patient was brought to the ER on account of worsening of symptoms Onset: Gradual (deteriorated over the past 3 weeks) Duration: Week(s): Associated Symptoms: Reports: Loss of Appetite, Malaise, Weakness - Related Data Allergies Allergy/AdvReac Type Severity Reaction Status Date / Time venom-honey bee Allergy Swelling Verified 03/20/17 16:30 [bee venom (honey bee)] Home Meds: Home Meds ALPRAZolam [Xanax] 0.5 - 1 mg PO TID PRN 09/19/14 [History] Albuterol [Ventolin HFA] 2 puff INH Q4H PRN 09/19/14 [History] Aspirin [Ecotrin] 81 mg PO DAILY 09/19/14 [History] EPINEPHrine [Epipen] 0.3 mg IM ASDIRECTED PRN 09/19/14 [History] Escitalopram [Lexapro] 20 mg PO DAILY 09/19/14 [History] Tiotropium [Spiriva HandiHaler] 18 mcg INH DAILY 09/19/14 [History] Fluticasone/Salmeterol [Advair 250-50 Diskus] 1 inh PO BID 10/13/16 [History] Furosemide [Lasix] 20 mg PO DAILY 10/13/16 [History] Calcium Carbonate [Tums] 500 mg PO ASDIRECTED PRN 03/08/17 [History] Cholecalciferol (Vitamin D3) [Vitamin D3] 1,000 units PO DAILY 03/08/17 [History ] Melatonin 3 mg PO BEDTIME 03/08/17 [History] Naproxen Sodium [Aleve] 220 mg PO ASDIRECTED PRN 03/08/17 [History] Ondansetron [Zofran] 4 mg PO Q6H PRN 03/08/17 [History] buPROPion [Wellbutrin SR] 150 mg PO DAILY 03/08/17 [History] Past Medical History - Past Health History Medical/Surgical History: Denies Medical/Surgical History HEENT History: Reports: Impaired Vision 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: Reports: 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: Musculoskeletal History: Reports: Back Pain, Chronic Psychiatric History: Reports: Depression, Panic Attack - Past Surgical History HEENT Surgical History: Reports: Cataract Surgery, Tonsillectomy Cardiovascular Surgical History: Reports: Carotid Endarterectomy Other Cardiovascular Surgeries/Procedures: VARICOSE VEIN STRIPPING, left endarterectomy, takes diuretics for swelling of legs GI Surgical History: Reports: Appendectomy Social & Family History - Family History Family Medical History: Noncontributory - Tobacco Use Smoking Status *Q: Former Smoker Years of Tobacco use: 25 Used Tobacco, but Quit: Yes Month Tobacco Last Used: NA Second Hand Smoke Exposure: No - Caffeine Use Caffeine Use: Reports: Coffee Caffeine Use Comment: 2 cups in the morning - Alcohol Use Days Per Week of Alcohol Use: 0 - Recreational Drug Use Recreational Drug Use: No - Living Situation & Occupation Living situation: Reports: Alone, with Family ED ROS GENERAL - Review of Systems Review Of Systems: ROS reveals no pertinent complaints other than HPI. ED EXAM, GENERAL - Physical Exam Exam: See Below Exam Limited By: No Limitations General Appearance: Lethargic, Thin, Other (chronically ill looking, cachectic) Eye Exam: Bilateral Eye: EOMI, PERRL Ears: Normal External Exam, Normal Canal, Hearing Grossly Normal, Normal TMs Nose: Normal Inspection, Normal Mucosa, No Blood Throat/Mouth: Normal Inspection, Normal Lips, Normal Teeth, Normal Oropharynx, No Airway Compromise, Other (Dry mucosa -- clinically dry) Head: Atraumatic, Normocephalic Neck: Normal Inspection, Supple, Non-Tender, Full Range of Motion Respiratory/Chest: No Respiratory Distress, Lungs Clear, Normal Breath Sounds, No Accessory Muscle Use Cardiovascular: Normal Peripheral Pulses, Regular Rate, Rhythm, No Edema, No Gallop, No JVD, No Murmur GI/Abdominal: Normal Bowel Sounds, Soft, Non-Tender, No Organomegaly, No Distention, No Abnormal Bruit, No Mass, Pelvis Stable Back Exam: Normal Inspection, Full Range of Motion Neurological: Alert, Oriented, CN II-XII Intact, Normal Cognition, No Motor/ Sensory Deficits Course - Vital Signs Last Recorded V/S: Last Vital Signs Temp 36.7 C 04/01/17 14:00 Pulse 92 04/01/17 11:50 Resp 20 04/01/17 14:00 BP 142/76 H 04/01/17 14:00 Pulse Ox 97 04/01/17 14:00 - Orders/Labs/Meds Orders: Active Orders 24 hr Category Date Time Status Sodium Chloride 0.9% [Normal Saline] 1,000 ml Med 04/01/17 12:00 Active IV ASDIRECTED Medication Orders Heparin Sodium (Porcine) (Heparin Sodium) 5,000 units SUBCUT Q8H [facility] Sodium Chloride (Normal Saline) 1,000 mls @ 100 mls/hr IV ASDIRECTED [facility] Last Admin: 04/01/17 12:31 Dose: 100 mls/hr Ceftriaxone Sodium 1,000 mg/ (Sodium Chloride) 50 mls @ 100 mls/hr IV Q24H [facility] Ondansetron HCl (Zofran) 4 mg IV Q4H PRN PRN Reason: Nausea/Vomiting Labs: Laboratory Tests 04/01/17 04/01/17 04/01/17 Range/Units 12:16 12:16 12:16 WBC 14.1 H (4.5-12.0) X10-3/uL RBC 3.22 L (3.23-5.20) x10(6)uL Hgb 9.8 L D (11.5-15.5) g/dL Hct 28.9 L (30.0-51.3) % MCV 89.8 (80-96) fL MCH 30.4 (27.7-33.6) pg MCHC 33.8 (32.2-35.4) g/dL RDW 12.5 (11.5-15.5) % Plt Count 476 H (125-369) X10(3)uL MPV 7.1 L (7.4-10.4) fL Neut % (Auto) 79.7 (46-82) % Lymph % (Auto) 8.1 L (13-37) % [place] % (Auto) 8.9 (4-12) % Eos % (Auto) 1 (1.0-5.0) % Baso % (Auto) 3 H (0-2) % Neut # (Auto) 11.1 H (1.6-8.3) # Lymph # (Auto) 1.1 (0.6-5.0) # [place] # (Auto) 1.3 (0.0-1.3) # Eos # (Auto) 0.1 (0.0-0.8) # Baso # (Auto) 0.4 H (0.0-0.2) # Sodium 134 L (135-145) mmol/L Potassium 3.5 (3.5-5.3) mmol/L Chloride 91 L (100-110) mmol/L Carbon Dioxide 35 H (23-29) mmol/L BUN 21 (8-23) mg/dL Creatinine 1.0 (0.6-1.3) mg/dL Est Cr Clr Drug Dosing TNP Estimated GFR (MDRD) 53 L (>60) BUN/Creatinine Ratio 21.0 H (9-20) Glucose 109 (80-116) mg/dL Calcium 9.0 (8.6-10.2) mg/dL Total Bilirubin 0.7 (0.1-1.3) mg/dL AST 22 D (5-27) IU/L ALT 22 D (14-26) IU/L Alkaline Phosphatase 94 (56-112) IU/L C-Reactive Protein 5.3 H* (0.0-1.0) mg/dL Total Protein 5.9 L (6.0-8.0) g/dL Albumin 2.9 L (3.2-4.6) g/dL Globulin 3.0 g/dL Albumin/Globulin Ratio 1.0 Urine Color (YELLOW) Urine Appearance (CLEAR) Urine pH (5.0-6.5) Ur Specific [place] (1.010-1.025) Urine Protein (NEGATIVE) mg/dL Urine Glucose (UA) (NEGATIVE) mg/dL Urine Ketones (NEGATIVE) mg/dL Urine Occult Blood (NEGATIVE) Urine Nitrite (NEGATIVE) Urine Bilirubin (NEGATIVE) Urine Urobilinogen (NEGATIVE) mg/dL Ur Leukocyte Esterase (NEGATIVE) Urine RBC (0) Urine WBC (0) Ur Squamous Epith Cells (NS,R,O) Urine Bacteria (NS) 04/01/17 Range/Units 16:10 WBC (4.5-12.0) X10-3/uL RBC (3.23-5.20) x10(6)uL Hgb (11.5-15.5) g/dL Hct (30.0-51.3) % MCV (80-96) fL MCH (27.7-33.6) pg MCHC (32.2-35.4) g/dL RDW (11.5-15.5) % Plt Count (125-369) X10(3)uL MPV (7.4-10.4) fL Neut % (Auto) (46-82) % Lymph % (Auto) (13-37) % [place] % (Auto) (4-12) % Eos % (Auto) (1.0-5.0) % Baso % (Auto) (0-2) % Neut # (Auto) (1.6-8.3) # Lymph # (Auto) (0.6-5.0) # [place] # (Auto) (0.0-1.3) # Eos # (Auto) (0.0-0.8) # Baso # (Auto) (0.0-0.2) # Sodium (135-145) mmol/L Potassium (3.5-5.3) mmol/L Chloride (100-110) mmol/L Carbon Dioxide (23-29) mmol/L BUN (8-23) mg/dL Creatinine (0.6-1.3) mg/dL Est Cr Clr Drug Dosing Estimated GFR (MDRD) (>60) BUN/Creatinine Ratio (9-20) Glucose (80-116) mg/dL Calcium (8.6-10.2) mg/dL Total Bilirubin (0.1-1.3) mg/dL AST (5-27) IU/L ALT (14-26) IU/L Alkaline Phosphatase (56-112) IU/L C-Reactive Protein (0.0-1.0) mg/dL Total Protein (6.0-8.0) g/dL Albumin (3.2-4.6) g/dL Globulin g/dL Albumin/Globulin Ratio Urine Color Yellow (YELLOW) Urine Appearance Clear (CLEAR) Urine pH 7.0 H (5.0-6.5) Ur Specific [place] 1.010 (1.010-1.025) Urine Protein Negative (NEGATIVE) mg/dL Urine Glucose (UA) Normal (NEGATIVE) mg/dL Urine Ketones Negative (NEGATIVE) mg/dL Urine Occult Blood Negative (NEGATIVE) Urine Nitrite Negative (NEGATIVE) Urine Bilirubin Negative (NEGATIVE) Urine Urobilinogen Normal (NEGATIVE) mg/dL Ur Leukocyte Esterase Negative (NEGATIVE) Urine RBC 0-5 (0) Urine WBC 0-5 (0) Ur Squamous Epith Cells Few H (NS,R,O) Urine Bacteria Few H (NS) Meds: Medications Generic Name Dose Route Start Last Admin Trade Name Freq PRN Reason Stop Dose Admin Heparin Sodium (Porcine) 5,000 units 04/01/17 17:00 Heparin Sodium SUBCUT Q8H [facility] Sodium Chloride 1,000 mls @ 100 mls/hr 04/01/17 12:00 04/01/17 12:31 Normal Saline IV 100 mls/hr ASDIRECTED [facility] Administration Ceftriaxone Sodium 1,000 mg/ 50 mls @ 100 mls/hr 04/01/17 17:00 Sodium Chloride IV Q24H [facility] Ondansetron HCl 4 mg 04/01/17 16:47 Zofran IV Q4H PRN Nausea/Vomiting Discontinued Medications Generic Name Dose Route Start Last Admin Trade Name Freq PRN Reason Stop Dose Admin Iopamidol 75 ml 04/01/17 14:49 04/01/17 15:04 Isovue-370 (76%) IV 04/01/17 14:50 56 ml ONETIME ONE Administration Departure - Departure Time of Disposition: 16:24 Disposition: Admitted As Inpatient 68 Condition: Fair Clinical Impression: Dehydration, Dizziness, Hyponatremia - Discharge Information - My Orders Last 24 Hours: My Active Orders 04/01/17 12:00 Sodium Chloride 0.9% [Normal Saline] 1,000 ml IV ASDIRECTED - Assessment/Plan Last 24 Hours: My Active Orders 04/01/17 12:00 Sodium Chloride 0.9% [Normal Saline] 1,000 ml IV ASDIRECTED
[2017-04-01] MEDS: Sodium Chloride 0.9% 1,000 ML IV SCH ×2 (12:31→23:58)
--- NOTE | 2017-04-01 14:28 | CT ---
INDICATION: History of falls, none today, but generalized weakness, decline in health. CT HEAD WITHOUT CONTRAST: Serial contiguous 2.5 and 5-mm sections were obtained through the brain 04/01/2017 and compared with 07/31/2013, again revealing calcifications in the vertebral and internal carotid arteries. Increased prominence of the ventricles is noted compared with the previous study , suggesting significant progression of central atrophy. Decreased density in the white matter also appears to be accentuated, compatible with progressive moderate to moderately severe microvascular disease. No definite bleeding site or hematoma was identified - no acute intracranial abnormality was seen. Motion degraded images are present. An additional set of images was obtained due to the motion with some improvement. Mastoid air cells and visualized paranasal sinuses were well aerated. No definite cranial abnormality was seen. IMPRESSION: 1. No definite acute intracranial abnormality. 2. Progressive central atrophy. 3. Progressive moderate to moderately severe microvascular disease type changes in the white matter - other cause of leukoencephalopathy cannot be excluded. 4. Arterial calcifications. 5. Lacunar infarct again noted in the posterior left basal ganglia. Report was called to Dr. Thakur at 1246 hours, 04/01/2017. Total Exam DLP = 1898.72 mGy-cm. MTDD
[2017-04-01] MEDS ORDERED: Iopamidol 755 Mg/ML 75 ML Bottle IV ONE (14:49)
--- NOTE | 2017-04-01 16:27 | CT ---
INDICATION: Occasional abdominal discomfort lower chest, no pain today. History of weight loss of 10 pounds in [address] CHEST, ABDOMEN, AND PELVIS WITH CONTRAST: Spiral 2.5-mm axial sections were obtained through the chest, abdomen, and pelvis with 56 mL Isovue-370 at 1.6 mL per second, and only one-quarter of the usual amount of oral contrast, since the patient was unable to drink more. Sagittal and coronal reconstructions were obtained 04/01/2017. No previous studies are available. Total Exam DLP = 322.96 mGy-cm. CT CHEST: Examination of the chest was obtained by CT as noted above. Some very minimal increased density is noted in the area of the lingula and the middle lobe, likely representing subsegmental atelectasis, although a minimal patchy pneumonia is difficult to entirely exclude. There are some fibrotic changes at the lung bases bilaterally. Subpleural density on the right is noted in the middle lobe and likely represents an area of scarring. It could be followed up by a repeat scan in 3 or 6 months for confirmation of stability. No gross consolidating pneumonia or definite effusion could be identified. No mediastinal masses were identified. There are a few other subpleural densities scattered about the lungs and these likely are fibrotic in nature also. No finding to strongly suggest malignancy could be identified. CT ABDOMEN AND PELVIS: Examination of the abdomen by CT as noted above was obtained and revealed rather marked distention of the stomach, which is filled with apparent food material. This appearance may be on the basis of a gastric outlet obstruction of partial or early nature or possibly hypotonicity of the stomach. The gallbladder had a slightly distended appearance, however, this may be on the basis of relative NPO status. No definite calculi were seen. Ultrasound will be necessary for further evaluation if gallbladder disease is suspected clinically. The liver, spleen, and less than ideally visualized pancreas appeared normal. The pancreas is somewhat stretched by the distended gastric body. No adrenal or renal masses were identified. No obstructive uropathy is identified. Calcifications are noted in the aorta and the superior mesenteric, iliac, and femoral arteries. No aortic dilatation is seen. Degenerative disk disease is suggested at L5-S1. Detail in the lower pelvis is limited due to lack of intraperitoneal fat and lack of contrast within the bowel. However, posteriorly at axial image #241, sagittal image #89, and coronal image #77, as well as other images in those projections, there is suggestion of a roughly oval to irregular shaped mass with a central gas bubble present deviating bowel around it, measuring 55 x 72 x 42 mm in anteroposterior, transverse, and craniocaudad diameters. This may represent an abscess. Percutaneous aspiration could be obtained, although ultrasound is recommended for confirmation, as detail in this area is less than ideal. Also, opacification of the bowel with non-barium contrast, oral contrast, or rectal contrast is also recommended if a repeat CT scan is obtained. Rectal injection of contrast may be very helpful. IMPRESSION: 1. Question the possibility of a 7-cm mass in the lower pelvis above and extending to the level of the acetabula bilaterally and posterior to the anteroposterior level of the hips - almost presacral, but anterior to the area of the rectosigmoid. It is just cranial to the rectum. This may represent an abscess. There appears to be a single gas bubble in its center. Etiology, however, is indeterminate to some degree since detail is somewhat limited in this area by lack of contrast. 2. Distended stomach, which may be on the basis of partial gastric outlet obstruction or hypotonicity. 3. ASD. 4. Degenerative changes at the disk of L5-S1. 5. Scarring at the lung bases. 6. Somewhat distended appearing gallbladder, likely on the basis of NPO status , but should be correlated clinically with ultrasound of the gallbladder as necessary for confirmation. CT PELVIS: Examination of the pelvis was obtained by CT as noted above and revealed question of a 5 x 7 cm mass density in the lower middle pelvis posteriorly, cranial to the rectum, which may represent an abscess, but should be correlated clinically. Report was called to Dr. Thakur at 1550 hours, 04/01/2017. DORCASD
[2017-04-01] MEDS ORDERED: Ondansetron 4 MG/2 ML SDV IV PRN (16:47)
[2017-04-01] MEDS ORDERED: Heparin Sodium 5,000 Units/ML Vial SUBCUT SCH (17:00)
[2017-04-01] MEDS ORDERED: cefTRIAXone 1,000 MG in Sodium Chloride 0.9% 50 ML IV SCH (17:00)
[2017-04-01] MEDS ORDERED: Formoterol/Mometasone 200-5 MCG 8.8 GM Inhaler IH SCH (21:00)
[2017-04-01] MEDS: Piperacillin/Tazobactam 3.375 GM in Sodium Chloride 0.9% 50 ML IV SCH (21:04)
[2017-04-01] MEDS: Enoxaparin 30 MG/0.3 ML Syringe SUBCUT SCH (21:04)
[2017-04-01] MEDS ORDERED: Sodium Chloride 0.9% 10 ML SDV FLUSH SCH (21:30)
[2017-04-02] MEDS: Piperacillin/Tazobactam 3.375 GM in Sodium Chloride 0.9% 50 ML IV SCH ×4 (01:46→19:15)
[2017-04-02] MEDS ORDERED: Sodium Chloride 0.9% 10 ML Syringe FLUSH SCH (07:28)
[2017-04-02] MEDS: Formoterol/Mometasone 200-5 MCG 8.8 GM Inhaler IH SCH ×2 (08:14→20:17)
[2017-04-02] MEDS: Tiotropium Inhaler 18 MCG Inhalation Powder Cap Kit of 5 INH SCH (08:15)
[2017-04-02] MEDS: Escitalopram 20 MG Tab PO SCH (08:15)
[2017-04-02] MEDS: Sodium Chloride 0.9% 1,000 ML IV SCH (11:06)
--- NOTE | 2017-04-02 17:11 | HP ---
ADMISSION DATE: 04/01/2017 HISTORY OF PRESENT ILLNESS: Deidra Macias is a 81-year-old female, who resides in [place], [place] was brought by family member to [facility]. Progressive decline in clinical well being. Failure to thrive, 10-pound weight loss over the last three weeks, progressive weakness, recurrent falls, and a sense of reduced wellbeing. We discharged home in the end of February with a complicated UTI and was in good health. Markedly reduced appetite. Denies chest pain or shortness of breath, does have underlying COPD. Bowels have been a little bit indifferent and appetite has been reduced. MEDICATIONS: On admission include: 1. Spiriva 1 capsule inhaled per day. 2. Lasix 40 mg 1 p.o. daily. 3. Baby aspirin 81 mg 1 daily. 4. Melatonin 3 mg daily. 5. Zantac 150 at bedtime, gastritis. 6. Lexapro 10 mg 1 p.o. daily, mood stabilizer. 7. Advair 1 puff morning and bedtime, COPD. 8. ProAir two puffs q.i.d. p.r.n. 9. Wellbutrin SR 150 one p.o. daily. 10.Vitamin D. PAST MEDICAL HISTORY: Significant for operative procedure, which include two previous back surgeries, appendectomy at age 14, previous vein stripping and ligation, hysterectomy for benign disease, remote tonsillectomy. Chronic illnesses include COPD, carotid stenosis, and a previous lacunar infarct. SOCIAL HISTORY: , at a very young age. 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 Long-term heavy smoker. No alcohol consumption. No illicit drug use. FAMILY HISTORY: Negative for early heart disease, diabetes mellitus, or inheritable cancers. REVIEW OF SYSTEMS: Cachexia, weakness, fatigue, weight loss, and lethargy. Bowels have been reluctant, voiding without difficulty. No apparent blood in the stool. PHYSICAL EXAMINATION: VITAL SIGNS: Stable and documented. GENERAL: Appears very weak, soft spoken. Difficulty moving. HEENT: Reveal funduscopic benign. Bright TMs. Clear nasal discharge. Mouth and oropharynx are clear. Tongue midline. Good gag reflex. NECK: Benign. Thyroid small. CHEST: Clear in all lung womack. No adventitious sounds. HEART: Regular without ectopy or murmur. ABDOMEN: Benign. Well-healed surgical scar. Liver edge palpable. No splenic enlargement. Tender epigastric area. AND RECTAL: Deferred. EXTREMITIES: Perfused but cool. LABORATORY STUDIES: CBC revealed hemoglobin 9.8, hematocrit 28.9, white count 14,100. It should be noted hemoglobin in end of October was 12.5. Electrolytes were satisfactory, liver enzymes within normal limits, C-reactive 5.3, urinalysis absolute correct. CT report: CT head, atrophy without other clinical findings. CT chest, no pathology except for evidence of COPD. CT pelvis revealed prominent hepatobiliary system and a questionable 5 x 7 cm mass in the lower pelvis, thought to be cystic in nature. ASSESSMENT: Cachexia, weight loss are troubling in nature, 10-pound weight loss, pelvic mass. PLAN: Diagnostic studies are not confirmatory. We will proceed with fluid hydration, antibiotic therapy for pelvic abscess, IV fluids and hydration. Complementary care and well being. /[id number] LIZ/ASSKIA
[2017-04-02] MEDS: Enoxaparin 30 MG/0.3 ML Syringe SUBCUT SCH (19:21)
[2017-04-03] MEDS: Piperacillin/Tazobactam 3.375 GM in Sodium Chloride 0.9% 50 ML IV SCH ×3 (01:35→13:55)
[2017-04-03] MEDS: Sodium Chloride 0.9% 1,000 ML IV SCH (07:01)
[2017-04-03] MEDS ORDERED: Albuterol 8 GM Inhaler INH PRN (08:20)
--- NOTE | 2017-04-03 08:27 | PCM.PN ---
- General Info Date of Service: 04/03/17 Admission Dx/Problem (Free Text): The patient states she feels a little nauseated at times and constipated. She feels weak. Her appetite a little bit better she stated last night. She denies fevers, chills, nasal congestion, sore throat, cough, shortness of breath, dysuria, pyuria, hematuria, pelvic or abdominal pain. - Patient Data Vitals - most recent: Last Vital Signs Temp 98.2 F 04/03/17 04:00 Pulse 86 04/03/17 04:00 Resp 16 04/03/17 04:00 BP 122/56 L 04/03/17 04:00 Pulse Ox 94 L 04/03/17 04:00 Weight - most recent: 102 lb 1.6 oz I&O - last 24 hours: Intake & Output 04/02/17 04/03/17 04/03/17 22:59 06:59 14:59 Intake Total 250 880 240 Output Total 350 Balance 250 880 -110 Med Orders - Current: Current Medications Albuterol (Ventolin Hfa) gm INH Q4H PRN PRN Reason: Shortness of Breath Bupropion HCl (Wellbutrin Sr) 150 mg PO DAILY [facility] Enoxaparin Sodium (Lovenox) 30 mg SUBCUT Q24H [facility] Last Admin: 04/02/17 19:21 Dose: 30 mg Escitalopram Oxalate (Lexapro) 20 mg PO DAILY [facility] Last Admin: 04/02/17 08:15 Dose: 20 mg Sodium Chloride (Normal Saline) 1,000 mls @ 50 mls/hr IV ASDIRECTED [facility] Last Admin: 04/03/17 07:01 Dose: 100 mls/hr Piperacillin Sod/Tazobactam (Sod 3.375 gm/ Sodium Chloride) 50 mls @ 100 mls/ hr IV Q6H [facility] Last Admin: 04/03/17 01:35 Dose: 100 mls/hr Melatonin (Melatonin) 3 mg PO BEDTIME [facility] Mometasone Furoate/Formoterol Fumar (Dulera 200-5 Mcg) 2 puff IH BID [facility] Last Admin: 04/02/17 20:17 Dose: 2 puff Naproxen (Naproxen Sodium) 220 mg PO BID PRN PRN Reason: Pain Non-Formulary Medication (Ondansetron [Zofran]) 4 mg PO Q6H PRN PRN Reason: Nausea/Vomiting Ondansetron HCl (Zofran) 4 mg IV Q4H PRN PRN Reason: Nausea/Vomiting Sodium Chloride (Saline Flush) 10 ml FLUSH ASDIRECTED [facility] Tiotropium Richards (Spiriva Handihaler) 18 mcg INH DAILY [facility] Last Admin: 04/02/17 08:15 Dose: 18 mcg Discontinued Medications Heparin Sodium (Porcine) (Heparin Sodium) 5,000 units SUBCUT Q8H [facility] Last Admin: 04/01/17 17:34 Dose: 5,000 units Ceftriaxone Sodium 1,000 mg/ (Sodium Chloride) 50 mls @ 100 mls/hr IV Q24H [facility] Last Admin: 04/01/17 17:38 Dose: 100 mls/hr Iopamidol (Isovue-370 (76%)) 75 ml IV ONETIME ONE Stop: 04/01/17 14:50 Last Admin: 04/01/17 15:04 Dose: 56 ml Mometasone Furoate/Formoterol Fumar (Dulera 200-5 Mcg) 2 puff IH BID [facility] Last Admin: 04/01/17 21:06 Dose: 2 puff Sodium Chloride (Normal Saline) 10 ml FLUSH ASDIRECTED [facility] - Exam General: alert, oriented, cooperative, other (She knows the month, the year, the day and President) Lungs: Clear to auscultation, Normal respiratory effort Cardiovascular: Regular Rate, Regular Rhythm, No Murmurs Extremities: no edema Skin: warm, intact Psy/Mental Status: alert, normal affect, depressed - Problem List & Annotations (1) Pelvic mass in female SNOMED Code(s): 87963141 Code(s): R19.00 - INTRA-ABD AND PELVIC SWELLING, MASS AND LUMP, UNSP SITE Status: Acute Current Visit: Yes (2) Palliative care status SNOMED Code(s): 730565910 Code(s): Z51.5 - ENCOUNTER FOR PALLIATIVE CARE Status: Acute Current Visit: Yes (3) Dehydration SNOMED Code(s): 37714622 Code(s): E86.0 - DEHYDRATION Status: Acute Current Visit: Yes (4) Hyponatremia SNOMED Code(s): 60436710 Code(s): E87.1 - HYPO-OSMOLALITY AND HYPONATREMIA Status: Acute Current Visit: Yes (5) Anemia of chronic disorder SNOMED Code(s): 317234743 Code(s): D63.8 - ANEMIA IN OTHER CHRONIC DISEASES CLASSIFIED ELSEWHERE Status: Acute Priority: Medium Current Visit: No Annotation/Comment:: Chronic. Some due to poor dietary intake as well as chronic disease. no active bleeding. h/h stable. (6) Chronic constipation SNOMED Code(s): 115477753 Code(s): K59.09 - OTHER CONSTIPATION Status: Chronic Priority: Low Current Visit: No Annotation/Comment:: Stools every 3-4 days with increase in strain, no blood or mucous. no black. takes mag citrate when needed and stool softner daily. Will have her start a Metamucil hs and docusate bid. - Problem List Review Problem List Initiated/Reviewed/Updated: Yes - My Orders Last 24 Hours: My Active Orders 04/03/17 08:20 Albuterol [Ventolin HFA] DOSE gm INH Q4H PRN Naproxen Sodium 220 mg PO BID PRN Ondansetron [Zofran] 4 mg PO Q6H PRN 04/03/17 08:22 CBC WITH AUTO DIFF [HEME] Routine COMPREHENSIVE METABOLIC PN,CMP [CHEM] Routine 04/03/17 09:00 buPROPion [Wellbutrin SR] 150 mg PO DAILY 04/03/17 21:00 Melatonin 3 mg PO BEDTIME - Plan Plan:: 1. Blood cultures 2. 2. Ultrasound in the a.m. 3. Continue IV antibiotics. 4. Restarted some of her medications include Wellbutrin, Zofran. 5. Awaiting for hematologic studies for anemia and her guaiac card. 6. Have the nurse watch for BMs before we give her anything. 7. I discussed care with Dr. Betts. He had another radiologist look at the report. Infiltrate the study was not good enough to say there is a pelvic mass that's why there'll be an ultrasound in the a.m. 8. PT/OT evaluation.
[2017-04-03] MEDS ORDERED: Ondansetron 4 MG Tab.DIS PO PRN (08:28)
[2017-04-03] MEDS: Formoterol/Mometasone 200-5 MCG 8.8 GM Inhaler IH SCH (08:50)
[2017-04-03] MEDS: Escitalopram 20 MG Tab PO SCH (08:50)
[2017-04-03] MEDS: Tiotropium Inhaler 18 MCG Inhalation Powder Cap Kit of 5 INH SCH (08:50)
[2017-04-03] MEDS ORDERED: buPROPion 150 MG Tab.SR PO SCH (09:00)
[2017-04-03] MEDS ORDERED: Sodium Phosphate,Monobasic/Sodium Phosphate,Dibasic Enema 133 ML Bottle RECTAL ONE (09:44)
[2017-04-03] MEDS ORDERED: Sodium Chloride 0.9% 250 ML IV ONE ×2 (14:54→14:58)
--- NOTE | 2017-04-03 15:05 | PCM.SN ---
- Free Text/Narrative Note: Consult from Dr. Billings was done. He felt there is something there that needs to be drained and her blood pressures dropping. He recommended sending her to [facility] for further workup and drainage and see what is going on in her pelvis. We have no ultrasound available this weekend. I give her bolus of fluid to 250 mL and then start 25 hour because of her low blood pressure although her pulse has not changed. I'll give her 1 unit of blood. I discussed the risks and benefits of blood transfusion with the patient. And she consents. I called [facility] [address] Pires from surgery. He agreed to take her in transfer. Transfer by [facility]. Nothing by mouth.
--- NOTE | 2017-04-03 15:16 | PCM.DCSUM1 ---
Discharge Summary - Hospital Course Free Text/Narrative:: Hospital course-CT scan showed a possible abscess in the pelvis. The admitting doctor asked for another opinion from another radiologist. Because the patient was not able to drink a lot of the contrast the diagnosis was in question. She had elevated white count of 14 and hemoglobin of 9.6. She was put on Zosyn. Within 2 days her white count came down. On day 3 of her admission her hemoglobin dropped to 7.2. She had not had a bowel movement so the nurse disimpacted and the stool was normal color stool but guaiac was positive. Surgical consult was done and felt that she should be transferred to [place] for drainage of what ever is in her pelvis. She would need a colonoscopy/EGD later. Radiologist recommended ultrasound of the pelvis. There is no ultrasound available over the weekend due to no tech that could do ultrasound. Admitting doctor felt she was stable at the time so she was not transferred yesterday or the day before. I called [place] and talk to Dr. Pires. He agreed to take her in transfer. She'll be sent by [facility]. I'll give her 250 bolus of saline then continue 125 mL an hour. Type and cross and give 1 unit RBCs. Brief History: This is a 81-year-old female patient but had progressive weakness. Was seen in the ER and diagnosed with weakness, dehydration and possible pelvic mass or abscess. She was admitted. She started on Zosyn IV. - Discharge Data Discharge Date: 04/03/17 Discharge Disposition: DC/Tfer to Acute Hospital 02 Condition: Fair - Discharge Diagnosis/Problem(s) (1) Pelvic mass in female SNOMED Code(s): 39469372 ICD Code: R19.00 - INTRA-ABD AND PELVIC SWELLING, MASS AND LUMP, UNSP SITE Status: Acute Current Visit: Yes (2) Palliative care status SNOMED Code(s): 783190833 ICD Code: Z51.5 - ENCOUNTER FOR PALLIATIVE CARE Status: Acute Current Visit: Yes (3) Dehydration SNOMED Code(s): 97569473 ICD Code: E86.0 - DEHYDRATION Status: Acute Current Visit: Yes (4) Hyponatremia SNOMED Code(s): 14024755 ICD Code: E87.1 - HYPO-OSMOLALITY AND HYPONATREMIA Status: Acute Current Visit: Yes (5) Chronic constipation SNOMED Code(s): 862232112 ICD Code: K59.09 - OTHER CONSTIPATION Status: Chronic Priority: Low Current Visit: No Problem Details: Stools every 3-4 days with increase in strain, no blood or mucous. no black. takes mag citrate when needed and stool softner daily. Will have her start a Metamucil hs and docusate bid. (6) Anemia SNOMED Code(s): 272411080 ICD Code: D64.9 - ANEMIA, UNSPECIFIED Status: Acute Current Visit: Yes Qualifiers: Anemia type: unspecified type Qualified Code(s): D64.9 - Anemia, unspecified - Patient Summary/Data Consults: Consultations 04/03/17 12:39 Consult to Physician [CONS] Routine Consulting Provider: Christiano Murrell Call Completed to Consulting Physician: Yes Reason for Consult: Anemia, guiac + stool. ? pelvic mass 04/04/17 08:00 OT Evaluation and Treatment [CONS] Routine Please Evaluate and Treat. OT Reason for Consult: Strengthening This query below is only for informational purposes and is not editable. Admission Diagnosis/Problem: Dehydration PT Evaluation and Treatment [CONS] Routine Please Evaluate and Treat. PT Reason for Consult: Strengthening This query below is only for informational purposes and is not editable. Admission Diagnosis/Problem: Dehydration - Patient Instructions Diet: NPO Activity: As Tolerated Driving: Do Not Drive Showering/Bathing: No Showering Other/Special Instructions: 1. Transfure to [facility]. Dr Pires accepting. [facility]. - Discharge Plan Home Medications: Home Meds Albuterol [Ventolin HFA] 2 puff INH Q4H PRN 09/19/14 [History] Aspirin [Ecotrin] 81 mg PO DAILY 09/19/14 [History] EPINEPHrine [Epipen] 0.3 mg IM ASDIRECTED PRN 09/19/14 [History] Escitalopram [Lexapro] 20 mg PO DAILY 09/19/14 [History] Tiotropium [Spiriva HandiHaler] 18 mcg INH DAILY 09/19/14 [History] Fluticasone/Salmeterol [Advair 250-50 Diskus] 1 inh PO BID 10/13/16 [History] Calcium Carbonate [Tums] 500 mg PO ASDIRECTED PRN 03/08/17 [History] Cholecalciferol (Vitamin D3) [Vitamin D3] 1,000 units PO DAILY 03/08/17 [History ] Melatonin 3 mg PO BEDTIME 03/08/17 [History] Naproxen Sodium [Aleve] 220 mg PO ASDIRECTED PRN 03/08/17 [History] Ondansetron [Zofran] 4 mg PO Q6H PRN 03/08/17 [History] buPROPion [Wellbutrin SR] 150 mg PO DAILY 03/08/17 [History] Piperacillin/Tazobactam [Zosyn] 3.375 gm IV Q6H #0 vial 04/03/17 [Rx] Sodium Chloride 0.9% [Normal Saline] 125 ml IV ASDIRECTED #0 bag 04/03/17 [Rx] Patient Handouts: Dehydration, Adult, [id number], Fall Prevention in Hospitals, Adult, Venous Thromboembolism Prevention Forms: ED Department Discharge Referrals: Kevon Mcguire MD [Primary Care Provider] - - Discharge Summary/Plan Comment DC Time >30 min.: Yes - Patient Data Vitals - Most Recent: Last Vital Signs Temp 98.2 F 04/03/17 13:00 Pulse 97 04/03/17 13:00 Resp 18 04/03/17 13:00 BP 81/52 L 04/03/17 13:00 Pulse Ox 97 04/03/17 13:00 Weight - Most Recent: 102 lb 1.6 oz I&O - Last 24 hours: Intake & Output 04/03/17 04/03/17 04/03/17 06:59 14:59 22:59 Intake Total 880 655 Output Total 350 Balance 880 305 Lab Results - Last 24 hrs: Laboratory Results - last 24 hr 04/03/17 04/03/17 04/03/17 Range/Units 08:45 08:45 09:25 WBC 10.3 (4.5-12.0) X10-3/uL RBC 2.44 L (3.23-5.20) x10(6)uL Hgb 7.4 L 7.2 L (11.5-15.5) g/dL Hct 22.2 L (30.0-51.3) % MCV 90.9 (80-96) fL MCH 30.3 (27.7-33.6) pg MCHC 33.3 (32.2-35.4) g/dL RDW 12.5 (11.5-15.5) % Plt Count 546 H (125-369) X10(3)uL MPV 7.2 L (7.4-10.4) fL Neut % (Auto) 74.5 (46-82) % Lymph % (Auto) 13.9 (13-37) % [place] % (Auto) 10.0 (4-12) % Eos % (Auto) 1 (1.0-5.0) % Baso % (Auto) 0 (0-2) % Neut # (Auto) 7.8 (1.6-8.3) # Lymph # (Auto) 1.4 (0.6-5.0) # [place] # (Auto) 1.0 (0.0-1.3) # Eos # (Auto) 0.1 (0.0-0.8) # Baso # (Auto) 0.0 (0.0-0.2) # Sodium 137 (135-145) mmol/L Potassium 3.5 (3.5-5.3) mmol/L Chloride 99 L D (100-110) mmol/L Carbon Dioxide 32 H (23-29) mmol/L BUN 38 H D (8-23) mg/dL Creatinine 0.9 (0.6-1.3) mg/dL Est Cr Clr Drug Dosing 37.06 mL/min Estimated GFR (MDRD) > 60 (>60) BUN/Creatinine Ratio 42.2 H (9-20) Glucose 141 H (80-116) mg/dL Calcium 8.5 L (8.6-10.2) mg/dL Total Bilirubin 0.4 (0.1-1.3) mg/dL AST 27 D (5-27) IU/L ALT 25 D (14-26) IU/L Alkaline Phosphatase 99 (56-112) IU/L Total Protein 5.4 L (6.0-8.0) g/dL Albumin 2.4 L (3.2-4.6) g/dL Globulin 3.0 g/dL Albumin/Globulin Ratio 0.8 TONNY Results - Last 24 hrs: Microbiology 04/03/17 10:20 Stool Occult Blood (TONNY) - Final Stool / Feces Med Orders - Current: Current Medications Albuterol (Ventolin Hfa) 0 gm INH Q4H PRN PRN Reason: Shortness of Breath Bupropion HCl (Wellbutrin Sr) 150 mg PO DAILY [facility] Last Admin: 04/03/17 09:20 Dose: 150 mg Enoxaparin Sodium (Lovenox) 30 mg SUBCUT Q24H [facility] Last Admin: 04/02/17 19:21 Dose: 30 mg Escitalopram Oxalate (Lexapro) 20 mg PO DAILY [facility] Last Admin: 04/03/17 08:50 Dose: 20 mg Sodium Chloride (Normal Saline) 1,000 mls @ 50 mls/hr IV ASDIRECTED [facility] Last Infusion: 04/03/17 15:00 Dose: 999 mls/hr Piperacillin Sod/Tazobactam (Sod 3.375 gm/ Sodium Chloride) 50 mls @ 100 mls/ hr IV Q6H [facility] Last Admin: 04/03/17 13:55 Dose: 100 mls/hr Sodium Chloride (Normal Saline) 250 mls @ 100 mls/hr IV ASDIRECTED ONE Stop: 04/03/17 17:23 Melatonin (Melatonin) 3 mg PO BEDTIME [facility] Mometasone Furoate/Formoterol Fumar (Dulera 200-5 Mcg) 2 puff IH BID [facility] Last Admin: 04/03/17 08:50 Dose: 2 puff Naproxen (Naproxen Sodium) 220 mg PO BID PRN PRN Reason: Pain Ondansetron HCl (Zofran) 4 mg IV Q4H PRN PRN Reason: Nausea/Vomiting Ondansetron HCl (Zofran Odt) 4 mg PO Q6H PRN PRN Reason: Nausea/Vomiting Polysaccharide Iron Complex (Ferrex 150) 150 mg PO BIDMEALS [facility] Sodium Chloride (Saline Flush) 10 ml FLUSH ASDIRECTED [facility] Tiotropium Ru[place] (Spiriva Handihaler) 18 mcg INH DAILY [facility] Last Admin: 04/03/17 08:50 Dose: 18 mcg Discontinued Medications Heparin Sodium (Porcine) (Heparin Sodium) 5,000 units SUBCUT Q8H [facility] Last Admin: 04/01/17 17:34 Dose: 5,000 units Ceftriaxone Sodium 1,000 mg/ (Sodium Chloride) 50 mls @ 100 mls/hr IV Q24H [facility] Last Admin: 04/01/17 17:38 Dose: 100 mls/hr Sodium Chloride (Normal Saline) 250 mls @ 999 mls/hr IV ONETIME ONE Stop: 04/03/17 15:09 Last Admin: 04/03/17 15:03 Dose: Not Given Iopamidol (Isovue-370 (76%)) 75 ml IV ONETIME ONE Stop: 04/01/17 14:50 Last Admin: 04/01/17 15:04 Dose: 56 ml Mometasone Furoate/Formoterol Fumar (Dulera 200-5 Mcg) 2 puff IH BID [facility] Last Admin: 04/01/17 21:06 Dose: 2 puff Sodium Biphosphate/Sodium Phosphate (Fleet Enema) 133 ml RECTAL ONETIME ONE Stop: 04/03/17 09:45 Last Admin: 04/03/17 10:07 Dose: 133 ml Sodium Chloride (Normal Saline) 10 ml FLUSH ASDIRECTED [facility] *Q Meaningful Use (DIS) - VTE *Q VTE Criteria *Q: - Stroke *Q Stroke Criteria *Q: - AMI *Q AMI Criteria *Q:
[2017-04-03 15:58] VITALS: BP 87/46
[2017-04-03] MEDS ORDERED: Iron Polysaccharides Complex 150 MG Cap PO SCH (18:00)
--- NOTE | 2017-04-03 20:08 | CONS ---
DATE OF CONSULTATION: 04/03/2017 REQUESTING PHYSICIAN: Dr. Mcguire. HISTORY OF PRESENT ILLNESS: This 81-year-old female was admitted 2 days ago with symptoms of weakness, weight loss, and failure to thrive. She has been noted to have a recent at least 10 pound weight loss over the last 3-4 weeks. She has fallen several times and is becoming increasingly weak. While in the hospital, the patient has been evaluated with laboratory studies which did show an initial elevated serum white blood cell count of 14,000, which has gone down to 10.3 today. Her admitting hemoglobin was 9.8, but today this dropped significantly down to 7.2, platelet count has remained normal. Other significant abnormal laboratory studies included a BUN which raised from 21-38. Her creatinine has remained normal. Her liver enzymes are normal, but albumin and protein are low. The patient underwent a CT scan of the chest, abdomen, and pelvis, which was significantly noted to show an approximately 7 cm mass in the pelvis adjacent to the rectum. This had some findings suggestive of an abscess. The patient says she has some mild intermittent abdominal pain. Then it was noted that her appetite has been very poor, although she has not had any vomiting. She does have a history of constipation, had constipated stool this morning with some manipulation, and this was noted to be guaiac positive, although not grossly bloody. She admits to some intermittent symptoms of heartburn, but denies epigastric pain at this time. PAST MEDICAL HISTORY: Does include diagnoses of COPD. MEDICATIONS: Include: 1. Spiriva. 2. Lasix. 3. Advair and ProAir inhalers. 4. Wellbutrin. 5. Zantac. PAST SURGICAL HISTORY: She has had a previous appendectomy, vein stripping, and hysterectomy as well as tonsillectomy. SOCIAL HISTORY: The patient is and has been living at home. Worked in several jobs including the [employer]. She also is a long-term smoker. PHYSICAL EXAMINATION: VITAL SIGNS: Shows blood pressure of 81/52, which is down from 122/56 early this morning; pulse is 97; temperature is 98.2; weight is 102 pounds. GENERAL: She is an elderly frail adult female. She does not appear in acute distress. HEENT: Head is normocephalic. No scleral icterus is noted. HEART: Regular. LUNGS: Clear with some rhonchi in the bases. ABDOMEN: Shows some generalized mild distention, but I do not feel any mass or hepatosplenic enlargement and no tenderness is noted on exam. GENITOURINARY: On digital rectal exam, I do not feel any rectal masses or evidence of extrinsic mass. A moderate amount of formed stool is in the rectal vault. EXTREMITIES: Show no calf tenderness or induration, and there is no ankle edema. IMPRESSION: 1. Pelvic mass. 2. Dropping hemoglobin and hypotension. 3. Failure to thrive. 4. Unexplained weight loss. RECOMMENDATIONS: I discussed the patient's condition with her physician. An ultrasound is scheduled for tomorrow to confirm the pelvic mass, and if this is indeed present as the CT seems to indicate, then needle aspiration would be appropriate for diagnosis and/or treatment. The patient will also need upper and lower endoscopy because of the guaiac-positive stools and dropping hemoglobin. Long-term care will likely be somewhat challenging because of her debilitated state. After consideration, it is felt the patient may benefit from transfer to a tertiary care center, and her physician will evaluate her and discuss this option with the family. I will follow up with her p.r.n. /[id number] HO/[place]
[2017-04-03] MEDS ORDERED: Melatonin 3 MG Tab PO SCH (21:00)
[2017-04-04 07:54] LABS: UNSATURATED IRON BIND CAPACITY 117 ug/dL (112-347)
== END 2017-04-03 16:02 | DRG 391 ==
LOC: FB.ED 11:20 → FB.MS 16:20
PROVIDERS: ADMIT Internal Medicine; ATTEND Family Medicine
PROC: 30233N1 Transfusion of Nonautologous Red Blood Cells into Peripheral Vein, Percutaneous Approach (ICD-10-PCS; principal; 2017-04-03)
DX: R19.00 Intra-abdominal and pelvic swelling, mass and lump, unspecified site (principal); K65.1 Peritoneal abscess; R53.1 Weakness; Z79.899 Other long term (current) drug therapy; E87.1 Hypo-osmolality and hyponatremia; Z68.1 Body mass index [BMI] 19.9 or less, adult; K92.1 Melena; Z87.891 Personal history of nicotine dependence; R63.0 Anorexia; R62.7 Adult failure to thrive; J44.9 Chronic obstructive pulmonary disease, unspecified; R29.6 Repeated falls; E86.0 Dehydration; R63.4 Abnormal weight loss; R12 Heartburn; Z79.82 Long term (current) use of aspirin; R42 Dizziness and giddiness; Z51.5 Encounter for palliative care; Z91.81 History of falling; K59.09 Other constipation; D63.8 Anemia in other chronic diseases classified elsewhere; I95.9 Hypotension, unspecified; M54.9 Dorsalgia, unspecified; G89.29 Other chronic pain; F32.9 Major depressive disorder, single episode, unspecified; H54.7 Unspecified visual loss; Z91.030 Bee allergy status
CPT/HCPCS: 36415; 70450; 71260; 74177; 80053; 81001; 85025; 86140; 96360; 96361; 99284; J7040; Q9967; 36430; 82272; 82962; 83540; 83550; 85018; 85027; 85045; 86850; 86900; 86901; 86920; 86922; 87040; A9270-GY; J0696; J1644; J1650; J2543; J7050; P9016